=== PATIENT | male | born 1960 | race Caucasian/White ===

== ENCOUNTER 2022-08-03 04:08 | Day surgery (SDC) | payer BC ==
[2022-07-28 16:18] VITALS: BMI 21.9
[2022-08-03 08:58] VITALS: TEMP 98
[2022-08-03] MEDS ORDERED: ACETAMINOPHEN 500 MG TABLET (FP) ONE (09:53)
[2022-08-03 10:48] VITALS: BP 158/87; PULSE 60; RESP 17
== END 2022-08-03 10:00 | disposition home or self-care (01) ==
LOC: JASU-ENDO 04:08
PROVIDERS: ATTEND Internal Medicine Gastroenterology
PROC: 0DB68ZX Excision of Stomach, Via Natural or Artificial Opening Endoscopic, Diagnostic (ICD-10-PCS; 2022-08-03)
PROC: 0DB48ZX Excision of Esophagogastric Junction, Via Natural or Artificial Opening Endoscopic, Diagnostic (ICD-10-PCS; 2022-08-03)
PROC: 0DBN8ZX Excision of Sigmoid Colon, Via Natural or Artificial Opening Endoscopic, Diagnostic (ICD-10-PCS; 2022-08-03)
PROC: 0DBL8ZX Excision of Transverse Colon, Via Natural or Artificial Opening Endoscopic, Diagnostic (ICD-10-PCS; 2022-08-03)
PROC: 0DB98ZX Excision of Duodenum, Via Natural or Artificial Opening Endoscopic, Diagnostic (ICD-10-PCS; principal; 2022-08-03 08:00)
DX: Z12.11 Encounter for screening for malignant neoplasm of colon (principal); D12.3 Benign neoplasm of transverse colon; K63.5 Polyp of colon; K29.80 Duodenitis without bleeding; K29.50 Unspecified chronic gastritis without bleeding; K21.00 Gastro-esophageal reflux disease with esophagitis, without bleeding; Z86.010 Personal history of colon polyps; R63.5 Abnormal weight gain; Z68.21 Body mass index [BMI] 21.0-21.9, adult; K64.8 Other hemorrhoids
CPT/HCPCS: 88305-TC; 88342-TC

== ENCOUNTER 2024-10-07 17:08 | Inpatient (IN) | payer BC ==
[2024-10-07 17:43] VITALS: BMI 20.3
[2024-10-07 19:06] LABS: BASO % 1.3 % (0-2.0); EOS % 1.9 % (0-4.5); HEMATOCRIT 39.3 % (35.4-49); HEMOGLOBIN 13.5 GM/dL (11.7-16.9); LYMPH % 25.6 % (8-40); MCH 31.6 pg (25.7-33.7); MCHC 34.3 g/dl (32.0-35.9); MEAN CELL VOLUME 92.3 fl (80-96); MEAN PLT VOLUME 7.4 fl (7.5-11.1); MONO % 3.8 % (3.8-10.2); NEUT % 67.4 % (42.8-82.8); PLATELET COUNT 230 10^3/uL (134-434); RBC 4.26 M/mm3 (4.00-5.60); RDW 14.6 % (11.9-15.9); WHITE BLOOD COUNT 9.9 K/mm3 (4.0-10.0)
[2024-10-07 19:13] LABS: INR 1.09 (0.83-1.09)
[2024-10-07 19:16] LABS: ACTIVATED PTT 24.4 SECONDS (25.2-36.5)
[2024-10-07 19:26] LABS: POTASSIUM 3.7 mmol/L (3.5-5.1)
[2024-10-07 19:28] LABS: CALCIUM 8.9 mg/dL (8.5-10.1)
[2024-10-07 19:29] LABS: BLOOD UREA NITROGEN 23.4 mg/dL (7-18)
[2024-10-07 19:32] LABS: CREATININE 1.4 mg/dL (0.55-1.3)
[2024-10-07 19:33] LABS: BILIRUBIN,TOTAL 0.4 mg/dL (0.2-1); TOT PROT 8.2 g/dl (6.4-8.2)
[2024-10-07] MEDS ORDERED: ACETAMINOPHEN INJECTION 100 ML ONE (19:42)
[2024-10-07 19:48] LABS: LACTIC ACID 2.1 mmol/L (0.4-2.0)
[2024-10-07] MEDS: ACETAMINOPHEN 1000 MG/100 ML BAG IVPB ONE (19:51)
[2024-10-07 20:39] LABS: HIV INTERPRETATION NEGATIVE (NEGATIVE)
[2024-10-08] MEDS: ROSUVASTATIN CA 5 MG TABLET PO SCH (01:03)
[2024-10-08] MEDS: amLODIPine BESYLATE 10 MG TABLET (FP) PO SCH (01:21)
[2024-10-08] MEDS: SODIUM CHLORIDE 1,000 ML IV SCH (02:57)
[2024-10-08] MEDS: ASPIRIN 81 MG CHEWABLE TABLETS PO SCH (09:14)
[2024-10-08] MEDS: PANTOPRAZOLE 40 MG TABLET PO SCH (09:14)
[2024-10-08] MEDS: SIMETHICONE 80 MG TAB.CHEW (FP) PO SCH (09:14)
[2024-10-08] MEDS: ACETAMINOPHEN 325 MG TABLET (FP) PO PRN (09:15)
[2024-10-08] MEDS: ENOXAPARIN NA (PORCINE) 40 MG/0.4 ML DISP.SYRIN SQ SCH (09:15)
[2024-10-08 09:49] LABS: HEMATOCRIT 38.7 % (35.4-49); HEMOGLOBIN 13.2 GM/dL (11.7-16.9); MCH 31.5 pg (25.7-33.7); MCHC 34.2 g/dl (32.0-35.9); MEAN CELL VOLUME 92.2 fl (80-96); MEAN PLT VOLUME 7.7 fl (7.5-11.1); PLATELET COUNT 227 10^3/uL (134-434); RDW 14.6 % (11.9-15.9); WHITE BLOOD COUNT 8.9 K/mm3 (4.0-10.0)
[2024-10-08] MEDS ORDERED: SIMETHICONE 250 MG PO SCH (10:00)
[2024-10-08] MEDS ORDERED: PATIENT'S OWN MEDICATION (NON-FORMULARY) (Benazepril Hcl [Benazepril Hcl] 20 MG Tablet) PO SCH (10:00)
[2024-10-08 10:06] LABS: ALBUMIN 3.8 g/dl (3.4-5.0); BLOOD UREA NITROGEN 18.7 mg/dL (7-18)
[2024-10-08 10:07] LABS: CALCIUM 9.3 mg/dL (8.5-10.1)
[2024-10-08 10:09] LABS: CREATININE 1.2 mg/dL (0.55-1.3)
[2024-10-08 10:11] LABS: BILIRUBIN,TOTAL 0.4 mg/dL (0.2-1)
[2024-10-08] MEDS: VARENICLINE TARTRATE 0.5 MG TAB PO SCH (12:22)
[2024-10-08] MEDS: ACETAMINOPHEN 325 MG TABLET (FP) PO ONE (14:40)
[2024-10-08] MEDS: ACETAMINOPHEN 1000 MG/100 ML BAG IVPB ONE (15:01)
[2024-10-08] MEDS: SODIUM CHLORIDE 1,000 ML IV STA (15:02)
[2024-10-09] MEDS: AMPICILLIN NA/SULBACTAM NA 1.5 GM in SODIUM CHLORIDE 100 ML IVPB SCH ×2 (04:16→14:04)
[2024-10-09 05:14] LABS: POTASSIUM 3.7 mmol/L (3.5-5.1)
[2024-10-09 05:16] LABS: CALCIUM 9.3 mg/dL (8.5-10.1)
[2024-10-09 05:17] LABS: ALBUMIN 3.8 g/dl (3.4-5.0)
[2024-10-09 05:20] LABS: CREATININE 1.1 mg/dL (0.55-1.3)
[2024-10-09 05:21] LABS: BILIRUBIN,TOTAL 0.5 mg/dL (0.2-1)
[2024-10-09 05:22] LABS: TOT PROT 7.9 g/dl (6.4-8.2)
[2024-10-09 05:44] LABS: BASO % 0.7 % (0-2.0); EOS % 3.8 % (0-4.5); HEMATOCRIT 38.7 % (35.4-49); HEMOGLOBIN 13.1 GM/dL (11.7-16.9); LYMPH % 32.9 % (8-40); MCH 31.5 pg (25.7-33.7); MCHC 33.9 g/dl (32.0-35.9); MEAN CELL VOLUME 92.9 fl (80-96); MONO % 5.9 % (3.8-10.2); NEUT % 56.7 % (42.8-82.8); PLATELET COUNT 224 10^3/uL (134-434); RBC 4.17 M/mm3 (4.00-5.60); RDW 14.4 % (11.9-15.9); WHITE BLOOD COUNT 9.3 K/mm3 (4.0-10.0)
[2024-10-09] MEDS ORDERED: HEPARIN NA (PORCINE) 5,000 UNITS/ML 1ML VIAL ONE ×2 (09:21→10:51)
[2024-10-09] MEDS ORDERED: LIDOCAINE HCL 1%, 10 MG/ML (20ML VIAL) ONE (09:21)
[2024-10-09] MEDS ORDERED: ACETAMINOPHEN INJECTION 100 ML ONE (10:06)
[2024-10-09] MEDS ORDERED: PROPOFOL 40 ML ONE (10:07)
[2024-10-09] MEDS ORDERED: MIDAZOLAM HCL 2 MG/2 ML SINGLE DOSE VIAL ONE (10:08)
[2024-10-09] MEDS ORDERED: LIDOCAINE HCL/PF 2% SDV 5ML VIAL ONE (10:09)
[2024-10-09] MEDS: LISINOPRIL 20 MG TABLET PO SCH (10:31)
[2024-10-09] MEDS: ceFAZolin SODIUM 1 GM VIAL IVPB ONE (10:35)
[2024-10-09] MEDS ORDERED: DEXAMETHASONE SOD PHOSPHATE 4 MG/1 ML VIAL ONE (10:41)
[2024-10-09] MEDS ORDERED: ceFAZolin SODIUM 1 GM VIAL ONE (10:41)
[2024-10-09] MEDS ORDERED: ONDANSETRON 4 MG/2 ML VIAL ONE (10:41)
[2024-10-09] MEDS ORDERED: GLYCOPYRROLATE 0.2 MG/1 ML VIAL ONE (10:41)
[2024-10-09] MEDS ORDERED: HYDROmorphone HCl 2 MG/ML VIAL ONE (10:45)
[2024-10-09] MEDS: HEPARIN NA (PORCINE) 5,000 UNITS/ML 1ML VIAL IVPUSH ONE (10:52)
[2024-10-09] MEDS ORDERED: LACTATED RINGERS SOLUTION 1,000 ML IV SCH (11:15)
[2024-10-09] MEDS ORDERED: SUGAMMADEX SODIUM 200 MG/2 ML VIAL ONE (11:58)
[2024-10-09] MEDS ORDERED: ACETAMINOPHEN 325 MG TABLET (FP) PO PRN (13:04)
[2024-10-09] MEDS: SODIUM CHLORIDE 1,000 ML IV SCH (14:49)
[2024-10-09] MEDS: LACTATED RINGERS SOLUTION 1,000 ML IV SCH (14:57)
[2024-10-09] MEDS: HEPARIN NA (PORCINE) 5,000 UNITS/ML 1ML VIAL SQ SCH (17:46)
[2024-10-09] MEDS: VARENICLINE TARTRATE 0.5 MG TAB PO SCH (21:02)
[2024-10-09] MEDS: ROSUVASTATIN CA 5 MG TABLET PO SCH (21:02)
[2024-10-09 21:45] VITALS: RESP 18
[2024-10-10 02:37] VITALS: TEMP 98.6
[2024-10-10 07:43] VITALS: BP 171/94; PULSE 81
[2024-10-10] MEDS ORDERED: SIMETHICONE 80 MG TAB.CHEW (FP) PO PRN (10:00)
[2024-10-10 10:08] LABS: HEMATOCRIT 32.2 % (35.4-49); HEMOGLOBIN 11.1 GM/dL (11.7-16.9); MCH 31.5 pg (25.7-33.7); MCHC 34.3 g/dl (32.0-35.9); MEAN CELL VOLUME 92.1 fl (80-96); MEAN PLT VOLUME 7.5 fl (7.5-11.1); PLATELET COUNT 255 10^3/uL (134-434); RDW 14.2 % (11.9-15.9)
[2024-10-10] MEDS: PANTOPRAZOLE 40 MG TABLET PO SCH (10:12)
[2024-10-10] MEDS: ASPIRIN 81 MG CHEWABLE TABLETS PO SCH (10:12)
[2024-10-10] MEDS: amLODIPine BESYLATE 10 MG TABLET (FP) PO SCH (10:12)
[2024-10-10] MEDS: LISINOPRIL 20 MG TABLET PO SCH (10:12)
[2024-10-10] MEDS: APIXABAN 5 MG TABLET PO SCH (10:13)
[2024-10-10 11:19] LABS: POTASSIUM 3.9 mmol/L (3.5-5.1)
[2024-10-10 11:20] LABS: BLOOD UREA NITROGEN 23.6 mg/dL (7-18)
[2024-10-10 11:24] LABS: CREATININE 1.4 mg/dL (0.55-1.3)
[2024-10-10 11:35] LABS: CALCIUM 9.6 mg/dL (8.5-10.1)
== END 2024-10-10 16:38 | disposition home or self-care (01) | DRG 253 ==
LOC: JER 17:08 → JERBED 18:19 → J6S 21:56
PROVIDERS: ADMIT Student in an Organized Health Care Education/Training Program; ATTEND Internal Medicine
PROC: 04HL3DZ Insertion of Intraluminal Device into Left Femoral Artery, Percutaneous Approach (ICD-10-PCS; 2024-10-09)
PROC: 04CL0ZZ Extirpation of Matter from Left Femoral Artery, Open Approach (ICD-10-PCS; principal; 2024-10-09 10:00)
DX: T82.868A Thrombosis due to vascular prosthetic devices, implants and grafts, initial encounter (principal); E87.20 Acidosis, unspecified; N17.9 Acute kidney failure, unspecified; I73.9 Peripheral vascular disease, unspecified; I10 Essential (primary) hypertension; J44.9 Chronic obstructive pulmonary disease, unspecified; K21.9 Gastro-esophageal reflux disease without esophagitis; D35.02 Benign neoplasm of left adrenal gland; R91.1 Solitary pulmonary nodule; I71.40 Abdominal aortic aneurysm, without rupture, unspecified; F17.210 Nicotine dependence, cigarettes, uncomplicated; I72.4 Aneurysm of artery of lower extremity; Y83.8 Other surgical procedures as the cause of abnormal reaction of the patient, or of later complication, without mention of misadventure at the time of the procedure
CPT/HCPCS: 36415; 75635-TC; 76000-TC-FY; 80048; 80053; 80061; 82550; 83036; 83605; 85025; 85027; 85610; 85730; 86803; 86850; 86900; 86901; 86922; 87389; 87522; 93005; 93010; 93306-TC; 93971-TC; 94760; 99285-25; C1757; C1874; J0131; J1644; Q9967